=== PATIENT | female | born 1990 | race Caucasian/White ===

== ENCOUNTER 2018-04-17 15:20 | Emergency (ER) | payer OTHER ==
[~2018-04-17] VITALS: Ht 170.2 cm; Wt 64.0 kg
[~2018-04-17 15:20] MED LIST: CIPR250T3 PO; IBUP200S18 PO
[2018-04-17 15:31] VITALS: BP 109/69
[2018-04-17] MEDS: LIDOCAINE MPF 1% - **ER/OR** 10 MG/ML VIAL INJ ONE (16:28)
[2018-04-17 16:30] VITALS: BP 110/68
== END 2018-04-17 16:30 | disposition home or self-care (01) ==
LOC: MED 15:20
DX: L03.012 Cellulitis of left finger (principal)
CPT/HCPCS: 10060; 99283; J2001

== ENCOUNTER 2018-07-20 10:09 | Outpatient (CLI) | payer OTHER ==
[~2018-07-20 10:09] MED LIST changes: +IBUP200C97 PO; -IBUP200S18 PO
[2018-07-21 07:21] LABS: HEPATITIS B SURFACE ANTIBODY Reactive (.); HEPATITIS B SURFACE ANTIGEN Negative (Negative)
[2018-07-22 06:21] LABS: CHLAMYDIA TRACHOMATIS AMP DNA Negative (Negative)
== END 2018-07-20 20:44 | disposition home or self-care (01) ==
LOC: MLB 10:09
PROVIDERS: ATTEND Family Medicine
DX: Z20.2 Contact with and (suspected) exposure to infections with a predominantly sexual mode of transmission (principal)
CPT/HCPCS: 36415; 86592; 86702; 86706; 86803; 87340; 87491

== ENCOUNTER 2019-01-17 10:28 | Emergency (ER) | payer OTHER ==
[~2019-01-17] VITALS: Ht 170.2 cm; Wt 61.2 kg
[2019-01-17 10:31] VITALS: BP 136/74
--- NOTE | 2019-01-17 10:35 | NUR ---
Patient ambulated to bed 1. RN evaluating patient at bedside.
--- NOTE | 2019-01-17 11:02 | NUR ---
PT BIB SELF TO THE ED WITH THE CHIEF C/O RED RIGHT EYE FOR 2 WEEKS. PER PT SHE LEFT CONTACT LENSE IN OVER NIGHT, REDNESS STARTED SINCE THEN. IRRITATING, TEARING EYES. REPORTS DISCOMFORTS. DENIES PAIN AT THIS TIME. DENIES FEVER OR ANY OTHER PROBLEM AT THIS TIME. ER MD AWARE.
[2019-01-17] MEDS ORDERED: TETRACAINE HCL/PF 0.5% OPTH 4 ML BTL ONE (11:26)
[2019-01-17] MEDS ORDERED: FLUORESCEIN OPTH STRIP 0.6 MG ONE (11:27)
[2019-01-17] MEDS ORDERED: TETRACAINE HCL/PF 0.5% OPTH 4 ML BTL OP STA (11:38)
--- NOTE | 2019-01-17 11:45 | NUR ---
ER MD DR PRESSLEY AT BEDSIDE FOR EVAL AND TX.
--- NOTE | 2019-01-17 12:36 | NUR ---
RIGHT EYE 20/30 LEFT EYE 20/25 BOTH EYES 20/25
[2019-01-17 14:41] VITALS: BP 122/72
--- NOTE | 2019-01-17 14:42 | NUR ---
Patient discharged with v/s stable. Written and verbal after care instructions given and explained. Patient alert, oriented and verbalized understanding of instructions. Ambulatory with steady gait. All questions addressed prior to discharge. ID band removed. Patient advised to follow up with PMD. Rx of CIPROFLOXACIN given. Patient educated on indication of medication including possible reaction and side effects. Opportunity to ask questions provided and answered.
== END 2019-01-17 12:45 | disposition home or self-care (01) ==
LOC: MED 10:28
DX: H10.9 Unspecified conjunctivitis (principal); Z79.2 Long term (current) use of antibiotics; Z79.1 Long term (current) use of non-steroidal anti-inflammatories (NSAID)
CPT/HCPCS: 99283

== ENCOUNTER 2019-05-09 07:03 | Outpatient (CLI) | payer OTHER ==
[2019-05-09 08:02] LABS: ALBUMIN 4.4 g/dL (3.4-5.0); ANION GAP 13.7 (8-16); CHOL/HDL RATIO 2.4 (1-4.5); CREATININE 0.8 mg/dL (0.6-1.3); POTASSIUM 3.7 mmol/L (3.5-5.1); THYROID STIMULATING HORMONE 1.67 uIU/mL (0.34-3.74); TOTAL BILIRUBIN 1.2 mg/dL (0.0-1.0)
== END 2019-05-09 20:45 | disposition home or self-care (01) ==
LOC: MLB 07:03
PROVIDERS: ATTEND Family Medicine
DX: N76.1 Subacute and chronic vaginitis (principal)
CPT/HCPCS: 36415; 80053; 82306; 84443